=== PATIENT | male | born 1980 | race Two or more races ===

== ENCOUNTER 2024-12-31 16:00 | Outpatient (RCR) | payer MEDICAID, SELFPAY ==
--- NOTE | 2024-12-18 15:10 | PT.OIERPT ---
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 The arm started to hurt after he started doing more physical work. The arm hurts more at night and with lifting things. 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 Pt may benefit from skilled therapy to meet goals and has fair rehab potential. [facility] Goals 1. Ind with HEP 2. Improved strength to 4/5 into FF and Abd 3. Pt will tolerate work duties x6 hrs with <=3/10 R shoulder pain Treatment Plan ? 1. Manual therapy ? 2. Therex ? 3. Modalities as indicated, moist heat, ice, estim Frequency and Duration: 1-2x a week for 12 visits Certification Dates: 12/18/24 to 03/19/25 Procedure Charges OP PT Eval Mod Complex 30 minutes: Yes
--- NOTE | 2024-12-31 18:37 | PT.ODAYNRPT ---
PT Outpatient Daily Note OP Daily Note Outpatient Physical Therapy Treatment Date: 12/31/24 Visit Reasons: RIGHT ARM PAIN Subjective: Same as time of evaluation Objective: See F/S for therex MHP: R brachium x7' MT: STM R brachium x7' Assessment: Min TTP of R brachium with MT. Good response to MHP to decrease pain Plan: Continue per POC Length of Time (minutes) of Treatment: 30 Minutes Procedure Charges Therapeutic Exercise 30 minutes: Yes
== END 2025-01-02 23:59 | disposition home or self-care (01) ==
LOC: CPTX 16:00
PROVIDERS: PCP Physician Assistant; Referring Provider Physician Assistant; Visit Provider Physician Assistant
DX: M79.621 Pain in right upper arm (principal); M25.511 Pain in right shoulder; S46.911D Strain of unspecified muscle, fascia and tendon at shoulder and upper arm level, right arm, subsequent encounter
CPT/HCPCS: 97110; 97162

== ENCOUNTER 2025-01-27 16:00 | Outpatient (RCR) | payer MEDICAID, SELFPAY ==
--- NOTE | 2025-01-06 16:44 | PT.ODAYNRPT ---
PT Outpatient Daily Note OP Daily Note Outpatient Physical Therapy Treatment Date: 01/06/25 Visit Reasons: RT ARM PAIN Subjective: About the same as last time Objective: See F/S for therex MHP: R brachium x7' MT: STM R brachium x7' Assessment: Min TTP of R brachium with MT. Good response to MHP to decrease pain Plan: Continue per POC Length of Time (minutes) of Treatment: 30 Minutes Procedure Charges Therapeutic Exercise 30 minutes: Yes
--- NOTE | 2025-01-14 17:39 | PT.ODAYNRPT ---
PT Outpatient Daily Note OP Daily Note Outpatient Physical Therapy Treatment Date: 01/14/25 Visit Reasons: RT ARM PAIN Subjective: Less R arm pain since last visit Objective: See F/S for therex MT: STM R brachium x7' Assessment: Min to no TTP of R brachium with MT. Good response to MHP to decrease pain Plan: Continue per POC Length of Time (minutes) of Treatment: 30 Minutes Procedure Charges Therapeutic Exercise 30 minutes: Yes
--- NOTE | 2025-01-21 17:23 | PT.ODAYNRPT ---
PT Outpatient Daily Note OP Daily Note Outpatient Physical Therapy Treatment Date: 01/21/25 Visit Reasons: RT ARM PAIN Subjective: Less R arm pain since last visit Objective: See F/S for therex MT: STM R brachium x7' Assessment: Min/mod TTP of R brachium with moderate pressure. Plan: Continue per POC Length of Time (minutes) of Treatment: 30 Minutes Procedure Charges Therapeutic Exercise 30 minutes: Yes
--- NOTE | 2025-01-27 17:43 | PT.ODS1RPT ---
PT OP Progress/Discharge Note Date of Service: 01/27/25 Progress Note/DC Note Progress Note/Discharge Note: DC Note Patient Information Visit Reasons: RT ARM PAIN Service Continue Service or Discharge: Discharge Discharge Date: 01/27/25 Status Subjective: Continued R UE pain with reaching to the side and today he couldn't lift up the arm into abduction due to pain in the shoulder and arm. Objective: R shoulder AROM: FF: full Abduction: 120 deg with pain ER: 90 deg Empty can: positive Delcid Max: positive TTP: moderate of supraspinatus insertion Assessment: Pt has attended the eval and 5 Rx sessions with limited progress with therapy goals due to continued R shoulder pain that seems to be radiating into the lateral brachium and scar. The pain is likely due to RC tendinopathy/tear and has positive special testing of supraspinatus. PT recommends further diagnostic imaging of R shoulder such as Xray, MRI. Plan: D/C with HEP Procedure Charges Therapeutic Exercise 30 minutes: Yes
== END 2025-02-02 23:59 | disposition home or self-care (01) ==
LOC: CPTX 16:00
PROVIDERS: PCP Physician Assistant; Referring Provider Physician Assistant; Visit Provider Physician Assistant
DX: M25.511 Pain in right shoulder (principal); S46.911D Strain of unspecified muscle, fascia and tendon at shoulder and upper arm level, right arm, subsequent encounter; X58.XXXD Exposure to other specified factors, subsequent encounter
CPT/HCPCS: 97110

== ENCOUNTER 2025-02-04 19:24 | Inpatient (IN) | payer MEDICAID, SELFPAY ==
[2025-02-04 19:30] VITALS: BMI 26.2
--- NOTE | 2025-02-04 19:33 | PC.NURSE ---
NOT A STROKE ALERT PER COVERER YATES.
[2025-02-04 20:20] VITALS: BMI 26.1
[2025-02-04 20:21] VITALS: BP 126/78; PULSE 86; RESP 19; TEMP 36.7; O2SAT 96
--- NOTE | 2025-02-04 20:54 | PD.EDNEURO ---
Neuro Symptoms Deficit-RME/HPI General Chief Complaint: Neuro Symptoms/Deficit Stated Complaint: TREMORS, VALLE, LOSS OF BALANCE X6 HOURS Time Seen by Provider: 02/04/25 20:56 Arrival date/time: 02/04/25 19:24 RME / HPI RME / HPI Narrative: See MDM for Dr. Stovall's HPI documentation. Related Data Allergies Allergy/AdvReac Type Severity Reaction Status Date / Time No Known Allergies Allergy Verified 02/04/25 19:30 Review of Systems Review of Systems Systems Reviewed: All systems reviewed, normal except as documented Past Medical History Social History SMOKING STATUS: Never smoker ED Exam Narrative Physical exam: See MDM for Dr. Stovall's physical exam documentation. Course Quality Measures none Orders Category Date Time Status Patient Condition Routine Admission 02/05/25 00:02 Ordered Bedside Blood Glucose NOW Care 02/04/25 20:59 Active COVID-19 Screening Questionnaire NOW Care 02/04/25 23:01 Active Conversion Worker NOW Care 02/04/25 20:59 Active Continuous Pulse Oximetry NOW Care 02/04/25 20:59 Completed Decision to Admit X1 Care 02/04/25 23:01 Active EKG (ED ONLY) *Do not use* NOW Care 02/04/25 20:59 Completed In and Out Catheter NEEDED Care 02/04/25 20:59 Active Insert IV NOW Care 02/04/25 20:59 Active MRI Screening NOW Care 02/04/25 21:30 Active NIH Stroke Scale now Care 02/04/25 20:59 Active NPO NOW Care 02/04/25 20:59 Active Notify provider NEEDED Care 02/05/25 00:02 Active Nurse Swallow Screen x1 Care 02/04/25 20:59 Active Consult to Neurology / Tele-Neurology Routine Cons 02/04/25 20:[address] angio stroke protocol Stat Exams 02/04/25 20:[address] stroke protocol Stat Exams 02/04/25 20:59 Completed EKG (ED Only) Stat Exams 02/04/25 20:59 Draft MR head/brain wo con Urgent Exams 02/04/25 Ordered XR chest 1V portable Stat Exams 02/04/25 20:59 Completed Alcohol, Blood Medical Stat Lab 02/04/25 21:18 Completed B-Type Natriuretic Peptide Stat Lab 02/04/25 21:18 Completed CBC Stat Lab 02/04/25 21:18 Completed Comprehensive Metabolic Panel Stat Lab 02/04/25 21:18 Completed Drug Screen,Urine Stat Lab 02/04/25 21:44 Completed Magnesium Stat Lab 02/04/25 21:18 Completed Partial Thromboplastin Time Stat Lab 02/04/25 21:18 Completed Prothrombin Time with INR Stat Lab 02/04/25 21:18 Completed Troponin I Stat Lab 02/04/25 21:18 Completed Urinalysis, C/S if Indicated Stat Lab 02/04/25 21:44 Completed Aspirin Med 02/04/25 21:29 Discontinued 325 mg PO X1 ONE Clopidogrel [Plavix] Med 02/04/25 21:29 Discontinued 300 mg PO X1 ONE Sodium Chloride 0.9% 1000 ml [Ns] 1,000 ml Med 02/04/25 21:00 Active IV Q10H Code Status Routine Oth 02/05/25 00:02 Ordered Oxygen Delivery NOW RT 02/04/25 20:59 Active Vital Signs Vital signs: Vital Signs Temperature 98.0 F 02/04/25 20:21 Pulse Rate 86 02/04/25 20:21 Respiratory Rate 19 02/04/25 20:21 Blood Pressure 126/78 02/04/25 20:21 Pulse Oximetry (%) 96 02/04/25 20:21 Oxygen Delivery Method Room Air 02/04/25 20:21 Neuro Symptoms / Deficit MDM Narrative MDM Narrative:: This section includes all my notes and documentations, including HPI, PE, and ED course. Fernando Stovall MD HPI: 44yo male here with multiple complaints. Including unsteady gait, neck pain, tremors, generalized weakness, dizziness, blurry vision, headache, and feeling of swollen eyes. His symptoms started around 11 am, about 10 hours ago. No speech impairment. No right-sided weakness or left-sided weakness. No numbness or tingling. No chest pain or shortness of breath. No other complaints. ROS: All negative except as documented in HPI. Physical Exam: General:? Alert and oriented.? No acute distress when remaining still. Eyes:? Conjunctivae and lids clear.? EOMI.? PERRL. ENT:? No nasal congestion.? Neck:? Supple.? No carotid bruit.? No JVD.?? Heart:? RRR.? Lungs:? No respiratory distress.? Good air movement.? No rhonchi, wheezing, rales.?? Abdomen:? Soft and nontender.? Legs:? No clubbing, cyanosis, edema.? Skin:? Warm and dry.?? Neuro:? Alert and oriented X 3.? Cranial Nerves II-XII grossly intact.? No peripheral motor deficits. I reviewed all diagnostic test results. My interpretation of the EKG is sinus rhythm with no ST-T changes. My interpretation of the chest x-ray is NAD. My review of the CT head report is NAD. My review of the CT angio head/neck report is NAD. Blood tests and urine tests are unremarkable. At this point, diagnoses include: 1. Stroke-like symptoms Treatment here included: 1. Plavix 2. Aspirin 3. IV fluid Patient roxane stable. I discussed the case with our teleneurologist. About the presentation and exam and diagnostics and treatments here. Recommend admission for further care. I discussed the case with our hospitalist.? About the presentation and exam and diagnostics and treatments here.? And need of further care in the hospital.? Will accept the patient. Fernando Stovall MD Patient data External records reviewed:: [facility] previous records (Per chart review, patient has no previous ED visits or admissions to this facility.) Clinical information provided by:: patient Social determinants that could affect healthcare access:: none Patient has the following chronic illnesses:: none How is presenting disease/condition affected by chronic disease/condition?: no chronic disease Evaluation data The following diagnostics were reviewed and interpreted by me:: lab results, radiology exam(s) and EKG tracing(s) (My interpretation of the EKG: NSR (83 bpm) with no ST-T changes. Fernando Stovall MD) Lab and/or radiology exams considered but not ordered:: none Interpretation Summary: I reviewed all diagnostic test results. My interpretation of the EKG is sinus rhythm with no ST-T changes. My interpretation of the chest x-ray is NAD. My review of the CT head report is NAD. My review of the CT angio head/neck report is NAD. Blood tests and urine tests are unremarkable. Medications / Prescriptions Medications or Prescriptions considered but not ordered:: none Medication administrations:: Medication Administration History Acetaminophen (Acetaminophen 325 Mg Tablet) 650 mg PO Q6H PRN PRN Reason: Fever >101.5 Stop: 03/07/25 00:02 Acetaminophen (Acetaminophen 325 Mg Tablet) 650 mg PO Q6H PRN PRN Reason: PAIN SCALE 1-3 (mild Stop: 03/07/25 00:02 Aspirin (Aspirin Ec 81 Mg Tabec) 81 mg PO QDAY HEBER Stop: 03/07/25 08:59 Atorvastatin Calcium (Atorvastatin Calcium 20 Mg Tablet) 80 mg PO HS HEBER Stop: 03/07/25 20:59 Clopidogrel Bisulfate (Clopidogrel Bisulfate 75 Mg Tablet) 75 mg PO QDAY HEBER Stop: 03/07/25 08:59 Enoxaparin Sodium (Enoxaparin Sod Inj 40 Mg/0.4 Ml Syringe) 40 mg SC QDAY HEBER Stop: 02/19/25 08:59 Sodium Chloride (Ns) 1,000 mls @ 100 mls/hr IV Q10H HEBER Stop: 03/06/25 20:59 Last Admin: 02/04/25 22:27 Dose: 100 mls/hr Documented By: CHAU Ondansetron HCl (Ondansetron Inj 2 Mg/Ml Inj 2 Ml) 4 mg IVP Q6H PRN; Protocol PRN Reason: NAUSEA OR VOMITING Stop: 03/07/25 00:02 Discontinued Medications Aspirin (Aspirin 325 Mg Tablet) 325 mg PO X1 ONE Stop: 02/04/25 21:30 Last Admin: 02/04/25 22:27 Dose: 325 mg Documented By: CHAU Atorvastatin Calcium (Atorvastatin Calcium 20 Mg Tablet) 80 mg PO X1 ONE Stop: 02/05/25 01:15 Clopidogrel Bisulfate (Clopidogrel Bisulfate 75 Mg Tablet) 300 mg PO X1 ONE Stop: 02/04/25 21:30 Last Admin: 02/04/25 22:28 Dose: 300 mg Documented By: CHAU Plavix, Aspirin, IV fluid Consultations Consultation(s) initiated? (list below): Yes Consultation #1 (Physician, Specialty, Details): I discussed the case with our teleneurologist. About the presentation and exam and diagnostics and treatments here. Recommend admission for further care. Consultation #2 (Physician, Specialty, Details): I discussed the case with our hospitalist.? About the presentation and exam and diagnostics and treatments here.? And need of further care in the hospital.? Will accept the patient. Diagnosis Neuro Differential Diagnosis: convulsions, delirium, subarachnoid hemorrhage, peripheral neuropathy, cerebrovascular accident, multiple sclerosis, transient cerebral ischemia and other (Psychogenic) Most likely diagnosis given after review of the tests above:: Stroke-like symptoms Admission Indicated Admission indicated?: indicated Explain why admission is indicated or not indicated:: Strokelike symptoms Admission Request Was there a request for admission?: Yes Admission Attestation Admission request attestation: Discussed case with Hospitalist service regarding admission. Discussed patients ED course, exam findings, labs, and radiology results. The Hospitalist [agrees] to accept the patient for admission. Disposition Plan Disposition Plan: Admit Critical Care Time Critical Care Time Critical Care Time: Yes Total Critical Care Time (min.): 45 Attestation: Due to a high probability of clinically significant, life threatening deterioration, the patient required my highest level of preparedness to intervene emergently and I personally spent this critical care time directly and personally managing the patient. This critical care time included obtaining a history; examining the patient; ordering and review of studies; arranging urgent treatment with development of a management plan; evaluation of patient's response to treatment; frequent reassessment; and discussions with family and other providers. It was exclusive of separately billable procedures and treating other patients and teaching time. Fernando Stovall MD Discharge Plan Plan Patient Disposition: Admit Acute Care w/in Hospital Problem List Clinical Impression: Stroke-like symptoms
--- NOTE | 2025-02-04 20:59 | XR_ITS ---
Examination: CT brain head without contrast. 2-D sagittal coronal reconstructions Date and time of exam:February 04, 2025, 2112 hrs. Indications: Stroke alert, onset focal neurologic deficit, headache, loss of balance today beginning 6 hours ago CTDI: vol (mGy):52.1 DLP: (mGycm):1073. Technique: Multiple CT axial sections of the brain have been obtained, 5 mm slice thickness. Contrast has not been administered. 2-D sagittal, coronal reconstructions have been obtained Low dose protocols were performed. One or more of the following dose reduction techniques were used; automated exposure control, adjustment of the mA and/or KV according to patient size, use of iterative reconstruction technique. Findings: No significant ventricular enlargement. Intra-axial or extra-axial hemorrhage density is not seen. No mass effect or midline shift Basal cisterns are not remarkable. Fourth ventricle is midline. Cranial vault intact. Impression: Negative for acute hemorrhage, mass effect or midline shift
--- NOTE | 2025-02-04 20:59 | EKG_ITS ---
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
--- NOTE | 2025-02-04 20:59 | XR_ITS ---
Examination: AP chest single view Technique one AP portable upright chest single view Date and time: February 04, 20252126 hrs. Indications: Headaches loss of balance 6 hours, stroke alert today Findings: No significant cardiac enlargement Moderate vascular congestion. No aspiration pneumonia. Mild osteopenia Impression: Moderate vascular congestion No aspiration pneumonia
--- NOTE | 2025-02-04 20:59 | XR_ITS ---
Examination: CTA carotids with intravenous contrast CTA brain, head with intravenous contrast. 2-D sagittal, coronal reconstructions. 3-D reconstructions. Exam date and time: February 04, 2025 2123 hrs. Indications: Stroke alert, onset focal neurologic deficit including loss of balance left-sided body weakness beginning 6 hours ago CTDI: vol (mGy) 11.5 DLP: (mGycm) 474 Technique: Multiple CTA axial brain, head carotid images post intravenous contrast injection 75 cc, [id number]. 2-D sagittal, coronal reconstructions. 3-D reconstructions, 3-D post processing including vascular maximum intensity projection images. Low dose protocols were performed. One or more of the following dose reduction techniques were used; automated exposure control, adjustment of the mA and/or KV according to patient size, use of iterative reconstruction technique. Findings: No significant common carotid carotid bifurcation or internal carotid artery stenoses Codominant vertebral arteries with no critical stenoses Intracranial vertebral arteries basilar artery posterior cerebral branches fill with no large vessel occlusions M1 segments middle cerebral arteries middle cerebral artery trifurcation vessels, anterior cerebral arteries also fill with no large vessel occlusions Impression: No significant neck arterial stenoses No cerebral large vessel arterial occlusions or thrombus
[2025-02-04 21:30] LABS: Basophils # (Auto) 0.0 Thou/mm3 (0.0-0.2); Basophils % (Auto) 1 % (0-2.5); Eosinophils # (Auto) 0.1 Thou/mm3 (0.0-0.5); Eosinophils % (Auto) 1 % (0-10); Hematocrit 43.5 % (41.0-53.0); Hemoglobin 14.9 g/dL (13.5-16.0); Immature Granulocytes Auto 0.00 Thou/mm3 (0.00-0.00); Lymphocytes # (Auto) 2.0 Thou/mm3 (1.0-4.8); Lymphocytes % (Auto) 34 % (10-50); Mean Corpuscular HGB Conc 34.3 g/dl (31.0-37.0); Mean Corpuscular Hemoglobin 28.8 pg (25.0-35.0); Mean Corpuscular Volume 84 fL (80-100); Monocytes # (Auto) 0.7 Thou/mm3 (0.0-0.8); Monocytes % (Auto) 12 % (0-12); Neutrophils # (Auto) 3.2 Thou/mm3 (1.8-7.7); Neutrophils % (Auto) 53 % (37-80); Nucleated Red Blood Cell # 0.00 Thou/mm3 (0.00-0.00); Nucleated Red Blood Cell % 0 /100 WBC (0); Platelet Count 208 Thou/mm3 (140-440); RDW Standard Deviation 39.5 fL (35.1-43.9); Red Blood Count 5.17 Miln/mm3 (4.50-5.90); White Blood Count 6.0 Thou/mm3 (3.8-10.6)
--- NOTE | 2025-02-04 21:40 | ESCONSULT_ITS ---
Tele Neuro Consultation Consultation Date 02/04/25 Most Recent Vital Signs Last Vital Signs Temp 98.0 F 02/04/25 20:21 Pulse 86 02/04/25 20:21 Resp 19 02/04/25 20:21 BP 126/78 02/04/25 20:21 Pulse Ox 96 02/04/25 20:21 O2 Del Method Room Air 02/04/25 20:21 Consultation Narrative [facility] Patient Name:???EMMA JACOBSON Date of :???1980 Identification Number:??? Date of Service:???02/04/2025 21:02:21 Diagnosis:?R26.81 - Unsteady gait Impression: ?44YOM with no relevant past medical history presenting with acute onset unsteadiness with bilateral arm tremor as well as sudden onset R sided headache. No migrainous features and relative resolution of headache at this time yet with ongoing significant unsteadiness per report. Objectively, patient with notable LLE ataxia on heel to wells testing, concerning for a possible posterior circulation ischemic process. Moving forward, recommend empirically treating as a stroke for now, with adjoined infectious and metabolic workup per primary team. Our recommendations are outlined below. Recommendations: ? Stroke/Telemetry Floor ? Neuro Checks (Q2) ? Bedside Swallow Eval ? DVT Prophylaxis ? IV Fluids, Normal Saline ? Head of Bed 30 Degrees ? Euglycemia and Avoid Hyperthermia (PRN Acetaminophen) ? Bolus with Clopidogrel 300 mg bolus x1 and initiate dual antiplatelet therapy with Aspirin 81 mg daily and Clopidogrel 75 mg daily ?Antihypertensives PRN if Blood pressure is greater than 180/110 or there is a concern for End organ damage/contraindications for permissive HTN ?MRI brain wo con ?Lipid panel, TSH, A1C, B12 ?Infectious and metabolic workup per primary team ?Transthoracic Echo ?PT/OT eval Sign Out: ? Discussed with Emergency Department Provider Advanced Imaging: Advanced imaging has been ordered. Results pending. Metrics: Last Known Well: 02/04/2025 11:00:00 Dispatch Time: 02/04/2025 21:02:20 Arrival Time: 02/04/2025 19:30:00 Initial Response Time: 02/04/2025 21:03:06Symptoms: Unsteadiness, bilateral hand tremor, . Initial patient interaction: 02/04/2025 21:05:51 NIHSS Assessment Completed: 02/04/2025 21:11:44Patient is not a candidate for Thrombolytic. Thrombolytic Medical Decision: 02/04/2025 21:11:46Patient was not deemed candidate for Thrombolytic because of following reasons: LKW outside 4.[address] Head: I personally reviewed all the CT images that were available to me and it showed: no blood products or early ischemic changes Primary Provider Notified of Diagnostic Impression and Management Plan on: 02/04/2025 21:35:40 History of Present Illness:Patient is a 44 year old Male. Patient was brought by private transportation with symptoms of Unsteadiness, bilateral hand tremor, . 44YOM with no relevant past medical history presenting with acute onset unsteadiness. Per patient, noticed symptoms today at appx 11am; patient notes that he had a sudden onset of unsteady gait with a drunken sensation as though about to fall over, at which point he noticed a tremor in both hands, most notably the R hand. Denies any previous history of strokes or seizures, yet does state that he felt a sharp pain in the back of his head on the R side at symptom onset, which has improved, without sensitivity to light or sound. Admits to generalized weakness with no focal weakness or sensory changes. Past Medical History: ?There is no history of Hypertension ?There is no history of Hyperlipidemia ?There is no history of Atrial Fibrillation ?There is no history of Stroke ?There is no history of Seizures Medications: No Anticoagulant use? No Antiplatelet use Reviewed EMR for current medications Allergies:? Reviewed Social History: Drug Use: No Family History: There is no family history of premature cerebrovascular disease pertinent to this consultation ROS : 14 Points Review of Systems was performed and was negative except mentioned in HPI. Past Surgical History: There Is No Surgical History Contributory To Today?s Visit Examination: BP(126/78),?Pulse(86), 1A: Level of Consciousness - Alert; keenly responsive?+ 0 1B: Ask Month and Age - Both Questions Right?+ 0 1C: Blink Eyes & Squeeze Hands - Performs Both Tasks?+ 0 2: Test Horizontal Extraocular Movements - Normal?+ 0 3: Test Visual March - No Visual Loss?+ 0 4: Test Facial Palsy (Use Grimace if Obtunded) - Normal symmetry?+ 0 5A: Test Left Arm Motor Drift - No Drift for 10 Seconds?+ 0 5B: Test Right Arm Motor Drift - No Drift for 10 Seconds?+ 0 6A: Test Left Leg Motor Drift - No Drift for 5 Seconds?+ 0 6B: Test Right Leg Motor Drift - No Drift for 5 Seconds?+ 0 7: Test Limb Ataxia (FNF/Heel-Wells) - Ataxia in 1 Limb?+ 1 8: Test Sensation - Normal; No sensory loss?+ 0 9: Test Language/Aphasia - Normal; No aphasia?+ 0 10: Test Dysarthria - Normal?+ 0 11: Test Extinction/Inattention - No abnormality?+ 0 NIHSS Score:?1 NIHSS Free Text :?LLE on heel to wells Pre-Morbid Modified Independence Scale:0 Points = No symptoms at all Spoke with :?Dr. Stovall This consult was conducted in real time using interactive audio and video technology. Patient was informed of the technology being used for this visit and agreed to proceed. Patient located in hospital and provider located at home/office setting. Patient is being evaluated for possible acute neurologic impairment and high probability of imminent or life-threatening deterioration. I spent total of 30 minutes providing care to this patient, including time for face to face visit via telemedicine, review of medical records, imaging studies and discussion of findings with providers, the patient and/or family. Dr Aubrey Ruiz [facility] For Inpatient follow-up with [facility] physician please call [facility] at . As we are not an outpatient service for any post hospital discharge needs please contact the hospital for assistance. If you have any questions for the [facility] physicians or need to reconsult for clinical or diagnostic changes please contact us via [facility] at . Signature :Fausto Ruiz
[2025-02-04 21:49] LABS: B-Type Natriuretic Peptide < 20 pg/mL (0-100); INR 1.0 (0.9-1.3); Partial Thromboplastin Time 26.8 Seconds (22.0-36.0); Prothrombin Time 11.3 Seconds (9.0-12.2)
[2025-02-04 21:51] LABS: Alanine Aminotransferase 21 U/L (10-49); Albumin, Serum 4.7 gm/dL (3.5-5.0); Albumin/Globulin Ratio 2.0 (1.2-2.2); Alcohol, Blood Medical < 3.0 mg/dL (0-10.0); Alkaline Phosphatase 86 U/L (46-116); Anion Gap 11 (7-16); Aspartate Amino Transferase 22 U/L (0-34); BUN/Creatinine Ratio 11 Ratio (12-20); Bilirubin,Total 1.5 mg/dL (0.3-1.2); Blood Urea Nitrogen 9 mg/dL (9-23); Calcium 10.5 mg/dL (8.3-10.6); Calcium (Corrected) 10.5 mg/dL (8.5-10.1); Carbon Dioxide 27.8 mMol/L (20.0-31.0); Chloride 104 mMol/L (98-107); Creatinine (Component) 0.8 mg/dL (0.6-1.3); Estimated Creatinine Clearance 122.9 mL/min (>60); Globulin 2.4 gm/dL (2.3-3.5); Glucose 98 mg/dL (74-106); Magnesium 2.1 mg/dL (1.6-2.6); Osmolality,Calculated 283 (275-295); Potassium 3.6 mMol/L (3.4-5.1); Sodium 143 mMol/L (136-145); Total Protein 7.1 gm/dL (5.7-8.2); Troponin I < 0.002 ng/mL (0.0-0.045); eGFR > 60 See Note
[2025-02-04 21:58] LABS: Collection Type, Urine Clean Catch
[2025-02-04 22:10] LABS: Amphetamine/Methamp Scrn,U Negative (Negative); Barbiturate Screen,Urine Negative (Negative); Benzodiazepines Screen,Urine Negative (Negative); Benzoylecgonine Screen, Ur Negative (Negative); Fentanyl Screen,Urine Negative (Negative); Opiate Screen,Urine Negative (Negative); THC Screen,Urine Negative (Negative)
[2025-02-04 22:12] LABS: Bacteria,Urine Rare; Bilirubin,Urine Negative (Negative); Blood,Urine 2+ (Negative); Calcium Oxalate Crystals,Urine Rare; Clarity,Urine Clear (Clear/Hazy); Color,Urine Yellow (Lt Yel-Yel); Culture Indicated,Urine Not Indicated; Glucose, Urine Negative (Negative); Hyaline Casts,Urine < 1 /hpf (0-1); Ketones,Urine Negative (Negative); Leukocyte Esterase,Urine Negative (Negative); Nitrite,Urine Negative (Negative); PH,Urine 5.5 (5.0-7.0); Protein,Urine 1+ (Neg - Trace); RBC,Urine 14 /hpf (0-3); Specific Gravity,Urine 1.038 (1.001-1.035); Squamous Epithelial Cell,Urine < 1 /hpf (0-5); Urobilinogen,Urine Negative mg/dL (0.0-1.0); WBC,Urine 4 /hpf (0-5)
[2025-02-04] MEDS: SODIUM CHLORIDE 0.9% 1000 ML 1,000 ML 100 ML IV (22:27)
[2025-02-04] MEDS: CLOPIDOGREL BISULFATE 75 MG TABLET 300 MG PO (22:28)
[2025-02-04 23:32] VITALS: BP 133/79; PULSE 79; RESP 18
[2025-02-05] VITALS (13 sets, daily range): BP systolic 99–143; BP diastolic 58–83; PULSE 61–83; RESP 14–97; TEMP 36.1–36.7; O2SAT 96–99; BMI 26.4
--- NOTE | 2025-02-05 | XR_ITS ---
Examinations: MRI Brain without intravenous contrast. MRA brain without intravenous contrast. MRA carotids without intravenous contrast 3-D vascular reconstructions Date and time of exam: February 05, 2025 0746 hours INDICATIONS: CT stroke alert 02/04/2025, onset focal neurologic deficit, headaches, loss of balance Technique: Multiple axial and sagittal images of the brain have been obtained MRA brain carotid images without contrast obtained, including 3-D postprocessing, vascular maximum intensity projection images Findings: [place] is not enlarged. The optic chiasm and infundibular stalk are not remarkable. Prepontine and interpeduncular cisterns are not enlarged. No localized enlargement of the medulla or ryan. Fourth ventricle and cerebellar tonsils normal in position. Subacute hemorrhage is not seen. Fourth ventricle is midline. Mass in the cerebellopontine angle region is not evident. 7th and 8th nerve complexes exhibits symmetry. Globes are symmetrical with no retro-orbital mass. Increased white matter signal not seen Diffusion-weighted images demonstrate no focus of restricted diffusion Mass-effect upon the ventricular system is not identified. MRA brain images no large vessel occlusions Impression: Negative for acute hemorrhage, mass effect or midline shift. No acute infarct. No MR findings diagnostic for demyelinating disease. No large vessel cerebral occlusions
--- NOTE | 2025-02-05 00:45 | PD.RESHP ---
Documentation for date of: 02/05/25 HPI History of Present Illness Chief complaint: hand tremors, dizziness and unsteady gait History of present illness: Mr. Moran is a 44-year-old male with no significant past medical history who presented to the ED on 02/04/2025 with chief complaint of 1 day of unsteady gait, hand tremors, dizziness and headache. Patient reports acute onset of unsteadiness, bilateral hand tremors, dizziness, headache that started concurrently around 10 AM this morning while he was working on cabinets at home. Patient reports that during the episodes there was no air conditioning and he felt very sweaty and decided to drink some water and electrolytes, however his symptoms did not resolve. Denies fall or loss of consciousness. This is the first occurrence of these symptoms for the patient. Denies any prior history of stroke or vertigo. He denies double vision, neck pain, chest pain, shortness of breath, abdominal pain, nausea, vomiting, abdominal pain and fatigue. ED Course: -Initial vitals were BP 126/70, pulse 86, RR 19, saturating well on room air. -Labs significant for cardiac calcium 10.5, total bilirubin 1.5, UA 14 RBC, UTOX negative -Imaging included chest x-ray that showed moderate vascular congestion, head CT negative for acute hemorrhage, head/neck CTA negative for any critical stenosis. EKG unremarkable -In the ED, patient was given 1 L NS, aspirin 325 mg x1, Plavix 300mg x1 -Patient was admitted for stroke rule out Review of Systems Review of systems otherwise negative except what is mentioned above. Past Medical History: none Family History: Noncontributory Surgical History: none Social History: Denies history of smoking, denies recreational drug use. Occasionally drinks beers. Current Medications: (Source: ) Allergies: No known drug allergies Exam Vital Signs Temp Pulse Resp BP Pulse Ox O2 Del Method 98.0 F 86 19 126/78 96 Room Air 02/04/25 20:21 02/04/25 20:21 02/04/25 20:21 02/04/25 20:21 02/04/25 20:21 02/04/25 20:21 Narrative Exam General: Alert, no acute distress.Conversational and non-toxic appearing. Skin: Warm, dry, intact. No rash or ecchymoses. Head: Normocephalic, atraumatic. Eye: Normal conjunctiva, PERRL. Throat: Oral mucosa moist. No obvious lesions in oropharynx. Cardiovascular: Regular rate and rhythm, no murmur, +S1/S2. Respiratory: Lungs are clear to auscultation, respirations unlabored, no crackles, no wheezing. Gastrointestinal: Soft, nontender, non-distended. No guarding or rebound tenderness. Extremities: No edema, no cyanosis, no clubbing. Neuro: Alert and oriented x3.No focal deficits observed. Conversant, moving all extremities. No overt cerebellar signs/incoordination. Motor: Strength is 5/5 in all major muscle groups bilaterally, including upper and lower extremities. No signs of weakness or paresis. Strength: Normal strength in upper and lower extremities, with full range of motion against resistance. Psychiatric: Cooperative, appropriate affect Results: Labs 02/06/25 04:35 02/06/25 04:35 Labs: Short CBC 02/04/25 Range/Units 21:18 WBC 6.0 (3.8-10.6) Thou/mm3 Hgb 14.9 (13.5-16.0) g/dL Hct 43.5 (41.0-53.0) % Plt Count 208 (140-440) Thou/mm3 BMP 02/04/25 21:18 Sodium 143 Potassium 3.6 Chloride 104 Carbon Dioxide 27.8 BUN 9 Creatinine 0.8 Glucose 98 Calcium 10.5 Cardiac Enzymes 02/04/25 Range/Units 21:18 Troponin I < 0.002 (0.0-0.045) ng/mL Liver Function 02/04/25 Range/Units 21:18 Total Bilirubin 1.5 H (0.3-1.2) mg/dL AST 22 (0-34) U/L ALT 21 (10-49) U/L Alkaline Phosphatase 86 (46-116) U/L Albumin 4.7 (3.5-5.0) gm/dL Urine 02/04/25 Range/Units 21:44 Urine Color Yellow (Lt Yel-Yel) Urine Clarity Clear (Clear/Hazy) Urine pH 5.5 (5.0-7.0) Ur Specific [place] 1.038 H (1.001-1.035) Urine Protein 1+ A (Neg - Trace) Urine Glucose (UA) Negative (Negative) Quality Measures Quality Measures none Medications Home Medications and Allergies Home Medications ?Medication ?Instructions ?Recorded ?Confirmed ?Type No Known Home Medications 02/05/25 02/05/25 History Allergies Allergy/AdvReac Type Severity Reaction Status Date / Time No Known Allergies Allergy Verified 02/04/25 19:30 Visit Medications Acetaminophen (Acetaminophen 325 Mg Tablet) 650 mg PO Q6H PRN PRN Reason: Fever >101.5 Stop: 03/07/25 00:02 Acetaminophen (Acetaminophen 325 Mg Tablet) 650 mg PO Q6H PRN PRN Reason: PAIN SCALE 1-3 (mild Stop: 03/07/25 00:02 Aspirin (Aspirin Ec 81 Mg Tabec) 81 mg PO QDAY HEBER Stop: 03/07/25 08:59 Clopidogrel Bisulfate (Clopidogrel Bisulfate 75 Mg Tablet) 75 mg PO QDAY HEBER Stop: 03/07/25 08:59 Sodium Chloride (Ns) 1,000 mls @ 100 mls/hr IV Q10H HEBER Stop: 03/06/25 20:59 Last Admin: 02/04/25 22:27 Dose: 100 mls/hr Ondansetron HCl (Ondansetron Inj 2 Mg/Ml Inj 2 Ml) 4 mg IVP Q6H PRN; Protocol PRN Reason: NAUSEA OR VOMITING Stop: 03/07/25 00:02 Discontinued Medications Aspirin (Aspirin 325 Mg Tablet) 325 mg PO X1 ONE Stop: 02/04/25 21:30 Last Admin: 02/04/25 22:27 Dose: 325 mg Clopidogrel Bisulfate (Clopidogrel Bisulfate 75 Mg Tablet) 300 mg PO X1 ONE Stop: 02/04/25 21:30 Last Admin: 02/04/25 22:28 Dose: 300 mg Assessment & Plan Plan Mr. Moran is a 44-year-old male with no significant past medical history who presented to the ED on 02/04/2025 with chief complaint of 1 day of unsteady gait, hand tremors, dizziness and headache. Admitted for CVA workup and management. #CVA work up #Ataxia Patient presented with acute onset dizziness, tremors, unsteady gait, and headache. CT head negative for acute hemorrhage, mass effect or midline shift. CTA head/neck showed no significant neck arterial stenosis Ddx: Patient's presentation is concerning for CVA such as stroke or TIA. Head CT is negative, pending MRI to further assess subtle findings that may not be visible on CT. TIA remains a possibility given the transient nature of pt symptoms and negative initial imaging. -Teleneuro was consulted and will follow, appreciate recommendations -Admitted to Telemetry -Head of bed elevation >30 degrees -Maintain euglycemia and normal temperature -Q2H neuro checks -Nurse swallow screen -Speech evaluation -PT evaluation -Hemoglobin A1c -Lipid panel -Vitamin B12 level -TSH level - aspirin 81 mg daily - atorvastatin 80 mg HS daily - plavix 75 mg PO QDAY -Antihypertensives PRN if Blood pressure is greater than 180/110 or there is a concern for End organ damage/contraindications for permissive HTN - DVT prophylaxis Lovenox 40mg - CA Echo doppler - MRI brain wo con #Hypercalcemia Incidental finding hypercalcemia on labs. Corrected Ca 10.5 Patient received 1 L NS on admission - continue to monitor - consider IV fluids if symptomatic hypercalcemia #Right shoulder injury Hospital management: Lines: peripheral IV Diet: NPO Bowel: NA DVT prophylaxis: Lovenox Disposition: tele CVA rule out CODE STATUS: Full code Patient seen and assessed under supervision of attending physician . Shahana Madrid MD PGY-1, Internal Medicine Please note: this document was transcribed using voice recognition technology; minor inaccuracies may be present. Attending Provider Attestation/Addendum After examination of the patient and review of the clinical data I feel that this patient needs admission to the hospital for further treatment/evaluation. I Marcelino Saleem MD, attest that I was physically present for espino portions of evaluation, and examined patient, labs and imagings and plan of care were discussed with IM residents team, and I agree with the findings and plans documented above.
[2025-02-05] MEDS: ATORVASTATIN CALCIUM 20 MG TABLET 80 MG PO (03:18)
[2025-02-05 06:02] LABS: Basophils # (Auto) 0.1 Thou/mm3 (0.0-0.2); Basophils % (Auto) 1 % (0-2.5); Eosinophils # (Auto) 0.1 Thou/mm3 (0.0-0.5); Eosinophils % (Auto) 3 % (0-10); Hematocrit 42.6 % (41.0-53.0); Hemoglobin 14.6 g/dL (13.5-16.0); Immature Granulocytes Auto 0.00 Thou/mm3 (0.00-0.00); Lymphocytes # (Auto) 1.9 Thou/mm3 (1.0-4.8); Lymphocytes % (Auto) 42 % (10-50); Mean Corpuscular HGB Conc 34.3 g/dl (31.0-37.0); Mean Corpuscular Hemoglobin 29.4 pg (25.0-35.0); Mean Corpuscular Volume 86 fL (80-100); Monocytes # (Auto) 0.5 Thou/mm3 (0.0-0.8); Monocytes % (Auto) 11 % (0-12); Neutrophils # (Auto) 1.9 Thou/mm3 (1.8-7.7); Neutrophils % (Auto) 44 % (37-80); Nucleated Red Blood Cell # 0.00 Thou/mm3 (0.00-0.00); Nucleated Red Blood Cell % 0 /100 WBC (0); Platelet Count 192 Thou/mm3 (140-440); RDW Standard Deviation 41.0 fL (35.1-43.9); Red Blood Count 4.96 Miln/mm3 (4.50-5.90); White Blood Count 4.4 Thou/mm3 (3.8-10.6)
[2025-02-05 06:40] LABS: Vitamin B12 474 pg/mL (211-911)
[2025-02-05 06:49] LABS: Glucose Estimated Average 114 mg/dL (80-131); Hemoglobin A1C 5.6 % Hgb (4.8-6.0)
--- NOTE | 2025-02-05 07:32 | ESPR_ITS ---
<Statement entered by Amanda Bentley MD - 02/05/25 13:57> Mr. Bola Mccormack is a 44-year-old male with no past medical history who presented to the ED after presenting with unsteady gait and bilateral arm tremors associated with a sudden right-sided headache since yesterday. Patient was seen working on cabinets while in the heat. Patient was admitted to telemetry for further management of stroke rule out. MRI brain showed no hemorrhage or acute infarct and no findings for demyelinating disease or large vessel occlusions. A1c is 5.6 lipid panel reveals LDL of 104, TSH and vitamin B12 within normal limits. Upon examination today, patient states all of his symptoms have resolved. Significant for today's lab findings are elevated bilirubin of 1.8. Encourage more oral fluid intake and will continue with IV fluids. ASCVD risk is less than 5% for any cardiovascular event in the next 10 years I will recommend healthy cardiovascular lifestyle choices. Physical therapy and echocardiogram. anticipate discharge in 24 hours. I discussed with and supervised the internal medicine veterinary technician physician who took care of this patient. I personally saw and examined the patient and discussed the assessment and plan with the entire medicine team, including my attending Dr. Foreman, I agree with most of the assessment and plan as documented below Amanda Bentley M.D. PGY-3 Disclaimer: Despite multiple revisions, due to the dictation software being used, the document bellow may not be free of grammatical errors including phonetic/typographic errors. However, this does not deter from our commitment to providing health care in the patient's best interest in mind. Documentation for date of: 02/05/25 Subjective Subjective Interval history: Mr broderick reports feeling back to his baseline. no tremors and full strength in upper and lower extremities. Exam Vital Signs Temp Pulse Resp BP Pulse Ox O2 Del Method O2 Flow Rate 97.0 F 66 20 143/83 H 98 Room Air 2 02/05/25 04:00 02/05/25 04:00 02/05/25 04:00 02/05/25 04:00 02/05/25 04:00 02/05/25 04:00 02/05/25 02:01 Narrative Exam General: Alert, no acute distress.Conversational and non-toxic appearing. Skin: Warm, dry, intact. No rash or ecchymoses. Head: Normocephalic, atraumatic. Eye: Normal conjunctiva, PERRL. Throat: Oral mucosa moist. No obvious lesions in oropharynx. Cardiovascular: Regular rate and rhythm, no murmur, +S1/S2. Respiratory: Lungs are clear to auscultation, respirations unlabored, no crackles, no wheezing. Gastrointestinal: Soft, nontender, non-distended. No guarding or rebound tenderness. Extremities: No edema, no cyanosis, no clubbing. Neuro: Alert and oriented x3.No focal deficits observed. Conversant, moving all extremities. No overt cerebellar signs/incoordination. Motor: Strength is 5/5 in all major muscle groups bilaterally, including upper and lower extremities. No signs of weakness or paresis. Strength: Normal strength in upper and lower extremities, with full range of motion against resistance. Psychiatric: Cooperative, appropriate affect Objective Labs 02/06/25 04:35 02/06/25 04:35 Labs: Laboratory Results - last 24 hr 02/04/25 02/04/25 02/05/25 21:18 21:44 05:00 WBC 6.0 4.4 RBC 5.17 4.96 Hgb 14.9 14.6 Hct 43.5 42.6 MCV 84 86 MCH 28.8 29.4 MCHC 34.3 34.3 RDW Std Deviation 39.5 41.0 Plt Count 208 192 Neut % (Auto) 53 44 Lymph % (Auto) [address] [place] % (Auto) 12 11 Eos % (Auto) 1 3 Baso % (Auto) 1 1 Neut # (Auto) 3.2 1.9 Lymph # (Auto) 2.[address] [place] # (Auto) 0.7 0.5 Eos # (Auto) 0.1 0.1 Baso # (Auto) 0.0 0.1 Immature Gran # (Auto) 0.00 0.00 Absolute Nucleated RBC 0.00 0.00 Immature Gran % 0 0 Nucleated RBC % 0 0 PT 11.3 INR 1.0 APTT 26.8 Sodium 143 Cancelled Potassium 3.6 Cancelled Chloride 104 Cancelled Carbon Dioxide 27.8 Cancelled Anion Gap 11 Cancelled BUN 9 Cancelled Creatinine 0.8 Cancelled Estim Creat Clear Calc 122.9 Cancelled eGFR > 60 Cancelled BUN/Creatinine Ratio 11 L Cancelled Glucose [address] Glu mg/dL 114 Hemoglobin A1c 5.6 Calculated Osmolality 283 Cancelled Calcium 10.5 Cancelled Corrected Calcium 10.5 H Cancelled Phosphorus Cancelled Magnesium 2.1 Cancelled Total Bilirubin 1.5 H Cancelled AST 22 Cancelled ALT 21 Cancelled Alkaline Phosphatase 86 Cancelled Troponin I < 0.002 B-Natriuretic Peptide < 20 Total Protein 7.1 Cancelled Albumin 4.7 Cancelled Globulin 2.4 Cancelled Albumin/Globulin Ratio 2.0 Cancelled Triglycerides Cancelled Cholesterol Cancelled LDL Cholesterol, Calc Cancelled HDL Cholesterol Cancelled Cholesterol/HDL Ratio Cancelled Vitamin B12 474 TSH Cancelled Ur Collection Type Clean Catch Urine Color Yellow Urine Clarity Clear Urine pH 5.5 Ur Specific [place] 1.038 H Urine Protein 1+ A Urine Glucose (UA) Negative Urine Ketones Negative Urine Blood 2+ A Urine Nitrite Negative Urine Bilirubin Negative Urine Urobilinogen (Auto) Negative Ur Leukocyte Esterase Negative Urine RBC 14 H Urine WBC 4 Ur Squamous Epith Cells < 1 Calcium Oxalate Crystal Rare Urine Bacteria Rare Hyaline Casts < 1 Ur Culture Indicated? Not Indicated Urine Opiates Screen Negative Urine Fentanyl Screen Negative Ur Barbiturates Screen Negative U Amphetamin/Meth Scrn Negative U Benzodiazepines Scrn Negative U Cocaine Metab Screen Negative U Marijuana (THC) Screen Negative Ethyl Alcohol < 3.0 Quality Measures Quality Measures none Assessment & Plan Assessment Current Active Medications: Generic Name Dose Route Start Last Admin Trade Name Freq PRN Reason Stop Dose Admin Acetaminophen 650 mg 02/05/25 00:03 Acetaminophen 325 Mg Tablet PO 03/07/25 00:02 Q6H PRN Fever >101.5 Acetaminophen 650 mg 02/05/25 00:03 Acetaminophen 325 Mg Tablet PO 03/07/25 00:02 Q6H PRN PAIN SCALE 1-3 (mild Aspirin 81 mg 02/05/25 09:00 Aspirin Ec 81 Mg Tabec PO 03/07/25 08:59 QDAY HEBER Atorvastatin Calcium 80 mg 02/05/25 21:00 Atorvastatin Calcium 20 Mg Tablet PO 03/07/25 20:59 HS HEBER Clopidogrel Bisulfate 75 mg 02/05/25 09:00 Clopidogrel Bisulfate 75 Mg Tablet PO 03/07/25 08:59 QDAY HEBER Enoxaparin Sodium 40 mg 02/05/25 09:00 Enoxaparin Sod Inj 40 Mg/0.4 Ml Syringe SC 02/19/25 08:59 QDAY HEBER Sodium Chloride 1,000 mls @ 100 mls/hr 02/04/25 21:00 02/04/25 22:27 Ns IV 03/06/25 20:59 100 mls/hr Q10H HEBER Administration Ondansetron HCl 4 mg 02/05/25 00:03 Ondansetron Inj 2 Mg/Ml Inj 2 Ml IVP 03/07/25 00:02 Q6H PRN NAUSEA OR VOMITING Protocol Plan Mr. Moran is a 44-year-old male with no significant past medical history who presented to the ED on 02/04/2025 with chief complaint of 1 day of unsteady gait, hand tremors, dizziness and headache. Admitted for CVA workup and management, now ruled out pending echo and PT eval, pending dispo home #CVA - rule out Patient presented with acute onset dizziness, tremors, unsteady gait, and headache. CT head negative for acute hemorrhage, mass effect or midline shift. CTA head/neck showed no significant neck arterial stenosis MRI brain negative Ddx: Patient's presentation is concerning for CVA such as stroke or TIA. TIA remains a possibility given the transient nature of pt symptoms and negative initial imaging. ASVD score low. -Teleneuro was consulted and will follow, appreciate recommendations -Admitted to Telemetry -Speech evaluation, completed -PT evaluation, pt ambulates independently at baseline -Hemoglobin A1c: 5.6 -Lipid panel unremarkable -Vitamin B12 level -TSH level wnl - d/c aspirin 81 mg daily - d/c atorvastatin 80 mg HS daily - d/c plavix 75 mg PO QDAY - DVT prophylaxis Lovenox 40mg - CA Echo doppler pending #Hypercalcemia- resolved likely 2/2 dehydration Incidental finding hypercalcemia on labs. Corrected Ca 10.5 Patient received 1 L NS on admission Hospital management: Lines: peripheral IV Diet: regular diet Bowel: NA DVT prophylaxis: Lovenox Disposition: tele CVA rule out, pending echo CODE STATUS: Full code Plan discussed with, Dr Bentley, and Dr. Kellen Khoury MD PGY1 Attending Provider Attestation/Addendum I have examined the patient, reviewed labs and imaging findings, discussed the case with the resident(s), and reviewed entered orders. I agree with the plan of care as outlined in this note, with these additional summaries/recommendations: Patient seen at bedside. He reports improvement in lower extremity weakness although not resolved. He reports he was able to ambulate to the bathroom this morning. CT head showed no acute hemorrhage, mass effect or midline shift. CTA head and neck showed no LVO. Patient was seen by teleneurology. Patient was given loading doses of aspirin and Plavix. Will continue aspirin 81 mg p.o. daily and high intensity statin. Patient is pending MRI brain to rule out stroke. Echocardiogram taken and pending read. Continue to allow permissive hypertension. Hyperbilirubinemia present although patient denies any abdominal symptoms at this time. Pending physical therapy evaluation. Repeat hematology and chemistry panels in AM. Patient updated on the plan and in agreement. All questions answered to satisfaction. Please see residents note for additional details and management. Dr. Kellen MD
[2025-02-05] MEDS: ASPIRIN EC 81 MG TABEC PO (09:06)
[2025-02-05] MEDS: CLOPIDOGREL BISULFATE 75 MG TABLET PO (09:06)
[2025-02-05] MEDS: ENOXAPARIN SOD INJ 40 MG/0.4 ML SYRINGE SC (09:06)
[2025-02-05 09:53] LABS: Alanine Aminotransferase 20 U/L (10-49); Albumin, Serum 4.2 gm/dL (3.5-5.0); Albumin/Globulin Ratio 2.1 (1.2-2.2); Alkaline Phosphatase 79 U/L (46-116); Anion Gap 12 (7-16); Aspartate Amino Transferase 20 U/L (0-34); BUN/Creatinine Ratio 13 Ratio (12-20); Bilirubin,Total 1.8 mg/dL (0.3-1.2); Blood Urea Nitrogen 10 mg/dL (9-23); Calcium 9.6 mg/dL (8.3-10.6); Calcium (Corrected) 9.6 mg/dL (8.5-10.1); Carbon Dioxide 27.2 mMol/L (20.0-31.0); Cardiac Risk Estimate 4.0 RATIO (4.0-6.7); Chloride 105 mMol/L (98-107); Cholesterol 177 mg/dL (132-200); Creatinine (Component) 0.8 mg/dL (0.6-1.3); Estimated Creatinine Clearance 122.9 mL/min (>60); Globulin 2.0 gm/dL (2.3-3.5); Glucose 102 mg/dL (74-106); HDL Cholesterol 44 mg/dL (40-60); LDL Cholesterol,Calculated 104 mg/dL (0-130); Magnesium 2.0 mg/dL (1.6-2.6); Osmolality,Calculated 285 (275-295); Phosphorous 3.7 mg/dL (2.4-5.1); Potassium 3.9 mMol/L (3.4-5.1); Sodium 144 mMol/L (136-145); Thyroid Stimulating Hormone 2.08 uIU/mL (0.55-4.78); Total Protein 6.2 gm/dL (5.7-8.2); Triglycerides 147 mg/dL (30-150); eGFR > 60 See Note
--- NOTE | 2025-02-05 11:10 | PC.SS ---
Patient is a 44 Year old male admitted for Stroke R/O. SS met with patient and patient's , Barbara Caraballo at bedside to discuss discharge plan and verify demographic information. Patient reports his , is his surrogate decision maker, [phone]. Patient reports that prior to admission he did not utilize any source of DME to assist with ambulation, patient is able to complete all ADL's independently. Choice of pharmacy is [facility]. Patient works full-time. PCP is Frank Tolliver. At time of discharge patient will return back home. Patient's will provide transportation. Discharge home Next of kin: , Barbara Caraballo PCP: Frank Tolliver
--- NOTE | 2025-02-05 13:00 | PC.SS ---
SS follow up note; Patient had an MRI today and is pending an echo and PT evaluation. Patient will discharge home when medically cleared.
--- NOTE | 2025-02-05 14:06 | PC.PT ---
PT eval only. Patient was xI with bed mobility, transfers, and ambulation with no AD. Patient is safe to ambulate to the bathroom and in the halls with no AD and no staff. RN made aware.
[2025-02-05] MEDS: SODIUM CHLORIDE 0.9% 1000 ML 1,000 ML 100 ML IV (14:45)
[2025-02-06] VITALS: BP 104/68; PULSE 61; PULSE 65; RESP 12; TEMP 36.9; O2SAT 98
[2025-02-06 04:00] VITALS: BP 115/72; PULSE 59; PULSE 62; RESP 15; TEMP 37; O2SAT 97
--- NOTE | 2025-02-06 04:38 | PC.NURSE ---
[facility] downtime occurred on 02/06/25 from 0200 to 0435
[2025-02-06 05:52] LABS: Basophils # (Auto) 0.0 Thou/mm3 (0.0-0.2); Basophils % (Auto) 1 % (0-2.5); Eosinophils # (Auto) 0.1 Thou/mm3 (0.0-0.5); Eosinophils % (Auto) 3 % (0-10); Hematocrit 44.6 % (41.0-53.0); Hemoglobin 15.1 g/dL (13.5-16.0); Immature Granulocytes Auto 0.00 Thou/mm3 (0.00-0.00); Lymphocytes # (Auto) 1.6 Thou/mm3 (1.0-4.8); Lymphocytes % (Auto) 42 % (10-50); Mean Corpuscular HGB Conc 33.9 g/dl (31.0-37.0); Mean Corpuscular Hemoglobin 29.5 pg (25.0-35.0); Mean Corpuscular Volume 87 fL (80-100); Monocytes # (Auto) 0.4 Thou/mm3 (0.0-0.8); Monocytes % (Auto) 10 % (0-12); Neutrophils # (Auto) 1.7 Thou/mm3 (1.8-7.7); Neutrophils % (Auto) 45 % (37-80); Nucleated Red Blood Cell # 0.00 Thou/mm3 (0.00-0.00); Nucleated Red Blood Cell % 0 /100 WBC (0); Platelet Count 181 Thou/mm3 (140-440); RDW Standard Deviation 41.1 fL (35.1-43.9); Red Blood Count 5.12 Miln/mm3 (4.50-5.90); White Blood Count 3.8 Thou/mm3 (3.8-10.6)
[2025-02-06 06:09] LABS: Albumin, Serum 4.1 gm/dL (3.5-5.0); Anion Gap 9 (7-16); BUN/Creatinine Ratio 8 Ratio (12-20); Blood Urea Nitrogen 6 mg/dL (9-23); Calcium 9.5 mg/dL (8.3-10.6); Calcium (Corrected) 9.5 mg/dL (8.5-10.1); Carbon Dioxide 27.8 mMol/L (20.0-31.0); Chloride 106 mMol/L (98-107); Creatinine (Component) 0.8 mg/dL (0.6-1.3); Estimated Creatinine Clearance 122.9 mL/min (>60); Glucose 99 mg/dL (74-106); Magnesium 2.0 mg/dL (1.6-2.6); Osmolality,Calculated 282 (275-295); Phosphorous 4.0 mg/dL (2.4-5.1); Potassium 4.3 mMol/L (3.4-5.1); Sodium 143 mMol/L (136-145); eGFR > 60 See Note
[2025-02-06 08:00] VITALS: BP 108/64; PULSE 65; PULSE 72; RESP 12; TEMP 36.7; O2SAT 96
[2025-02-06] MEDS: ENOXAPARIN SOD INJ 40 MG/0.4 ML SYRINGE SC (08:07)
--- NOTE | 2025-02-06 10:43 | PC.NURSE ---
discharge orders in place but pending echo to be done, notified echo already
[2025-02-06 11:27] VITALS: PULSE 74; RESP 18; RESP 96
[2025-02-06 12:00] VITALS: BP 112/69; PULSE 78; PULSE 80; RESP 22; TEMP 36.7; O2SAT 96
--- NOTE | 2025-02-06 13:31 | ESDS_ITS ---
<Statement entered by Candice Mccall MD - 02/06/25 22:14> Note reviewed, I agree with most of its contents and agree with the patient's care as documented by Dr. Khoury. The patient's management plan was discussed with my attending physician Dr. Foreman. Candice Mccall, PGY-2 Planned Discharge Date 02/06/25 DS: Providers Provider Date of admission: 02/05/25 00:03 Primary care physician: Frank Tolliver PA-C Admitting Provider: Marcelino Saleem MD Attending Provider on Admission: Marcelino Saleem MD Consults: 02/04/25 20:59 Consult to Neurology / Tele-Neurology Routine Comment: Consulting Provider: [facility] 02/05/25 01:18 Referral Physical Therapy Routine Comment: Physician Instructions: Referral Speech Therapy Routine Comment: Attending Provider on DC: Dr. Kellen SAMPSON Discharging Provider: Dr. Kellen SAMPSON DS: Diagnosis Problem List Completed Was Problem List Reviewed/Reconciled?: Yes Hospital Course Hospital Course Hospital course: Reason for Admission: Unsteady gait, bilateral hand tremors, dizziness, and headache ? admitted for cerebrovascular accident (CVA) rule-out. Pertinent Hospital Course: The patient is a 44-year-old gentleman with no significant past medical history who presented to the emergency department with one day of unsteady gait, bilateral hand tremors, dizziness, and headache. On arrival, he was hemodynamically stable and had no focal neurological deficits. Initial CT head was negative for acute hemorrhage, mass effect, or midline shift. CT angiography of the head and neck showed no significant arterial stenosis. MRI brain was also negative for acute ischemic stroke. Neurology was consulted and agreed that the patient?s presentation was unlikely due to an acute cerebrovascular event. Transthoracic echocardiogram was ordered but not completed during this admission. His ASCVD score was low, and given his imaging studies ruled out stroke he was not started on dual antiplatelet therapy or aspirin. During hospitalization, the patient remained stable without recurrence of symptoms or development of focal deficits. He was deemed safe for discharge. Discharge Condition: ? Stable, no focal neurological deficits. ? Ambulating safely. Discharge Medications: ? None initiated during this admission. Follow-Up: ? Outpatient primary care provider follow-up within 1?2 weeks. ? Stay hydrated and avoid excessive heat when possible. ? Return to ED if symptoms worsen. Discharge Instructions: ? Return to the emergency department for new or worsening neurological symptoms including weakness, numbness, slurred speech, vision changes, or severe headache. ? Maintain a healthy lifestyle with emphasis on diet, exercise, and avoidance of tobacco or illicit drugs. Plan discussed with Dr. Mccall, Dr Bentley, and Dr. Kellen Khoury MD PGY1 Time Spent with Patient Time attestation: Total time spent providing and/or coordinating discharge services: Time spent: Greater than 30 minutes Exam Vital Signs Temp Pulse Resp BP Pulse Ox O2 Del Method O2 Flow Rate 98.1 F 78 22 H 112/69 96 Room Air 2 02/06/25 12:00 02/06/25 12:02/06/25 12:02/06/25 12:02/06/25 12:02/06/25 12:02/06/25 08:00 Narrative Exam General: Alert, no acute distress.Conversational and non-toxic appearing. Skin: Warm, dry, intact. No rash or ecchymoses. Head: Normocephalic, atraumatic. Eye: Normal conjunctiva, PERRL. Throat: Oral mucosa moist. No obvious lesions in oropharynx. Cardiovascular: Regular rate and rhythm, no murmur, +S1/S2. Respiratory: Lungs are clear to auscultation, respirations unlabored, no crackles, no wheezing. Gastrointestinal: Soft, nontender, non-distended. No guarding or rebound tenderness. Extremities: No edema, no cyanosis, no clubbing. Neuro: Alert and oriented x3.No focal deficits observed. Conversant, moving all extremities. No overt cerebellar signs/incoordination. Motor: Strength is 5/5 in all major muscle groups bilaterally, including upper and lower extremities. No signs of weakness or paresis. Strength: Normal strength in upper and lower extremities, with full range of motion against resistance. Psychiatric: Cooperative, appropriate affect Discharge Plan Plan Patient Disposition: HOME (Self Care) Patient condition on transfer: Stable Prescriptions/Referrals Prescriptions/Med Rec: No Action No Known Home Medications Referrals: Frank Tolliver PA-C [Primary Care Provider] Patient/Caregiver Discharge Instructions Other Discharge Activity Instructions:: Follow up with your PCP in 1-2 weeks. Stay hydrated and avoid excessive heat when possible. Return to ED if symptoms worsen. Print Language: Armenian Stand Alone Forms: Danielle Award Info., Patient Portal Info Letter, Work/Release Restrictions Discharge Order Discharge Orders: Discharge (Routine); Ordered 02/06/25 Ordered By: Candice Mccall Quality Discharge Quality Measures VTE prophylaxis Attestestation MD Attestation I have examined the patient, reviewed labs and imaging findings, discussed the case with the resident(s), and reviewed entered orders. I agree with the plan of care as outlined in this note. Time Spent: [address] Kellen MD
== END 2025-02-06 13:00 | disposition home or self-care (01) | DRG 111 ==
LOC: SERX 23:02 → SERHOLD 02-05 01:07 → S2NX 02-05 02:51
PROVIDERS: Admitting Provider Student in an Organized Health Care Education/Training Program; Emergency Provider Emergency Medicine; PCP Physician Assistant; Visit Provider Student in an Organized Health Care Education/Training Program
DX: R42 Dizziness and giddiness (principal); R51.9 Headache, unspecified; R25.1 Tremor, unspecified; R26.81 Unsteadiness on feet; E83.52 Hypercalcemia; Z79.02 Long term (current) use of antithrombotics/antiplatelets; Z79.82 Long term (current) use of aspirin; Z79.899 Other long term (current) drug therapy
CPT/HCPCS: 36415; 70450; 70496; 70498; 70544; 71045; 80053; 80061; 80069; 80307; 80320; 81001; 82607; 83036; 83735; 83880; 84100; 84443; 84484; 85025; 85610; 85730; 92610; 93005; 93306; 96360; 96361; 97161; 99285; A4649; J1650; J7030; Q9967; A9270; G0480